=== PATIENT | male | born 1950 | race Caucasian/White ===

== ENCOUNTER → 2024-10-09 09:57 | Outpatient (CLI) | payer MEDICARE, OTHER, SELFPAY ==
--- NOTE | 2024-10-09 10:00 | DI.ECHO.S_ITS ---
[place] +---------+ [facility] : : [address] : : [place] : : [id number] : : Phone: [phone] Echocardiogram Report + + :Name: DAKOTA MCCARTHY Study Date: 10/09/2024 Height: 70 in : [facility] Reading[facility]: Weight: 185 lb : : Gender: Male BSA: 2.0 m2 : :: 1950 Age: 73 yrs BP: 144/79 mmHg: :Reason For Study: MURMUR, CHEST PAIN : :Ordering Physician: JOSIAH, : :CLIFF Performed By: Aman Wagner : :Referring: CLIFF RAHMAN : + + Interpretation Summary The left ventricle is normal in size. Left ventricular systolic function appears normal without focal wall motion abnormalities. The ejection fraction is estimated to be 55-60%. The right ventricle is mild to moderately dilated. The right ventricular systolic function is normal. The left atrium is mildly dilated. There is no significant valvular heart disease. The ascending aorta is mildly enlarged. Procedure: A two-dimensional transthoracic echocardiogram with color flow and Doppler was performed. The study quality was technically good. There is no prior echocardiogram noted for this patient. The patient was in normal sinus rhythm during the exam. Left Ventricle: The left ventricle is normal in size. Left ventricular wall thickness is mildly increased. There is no ventricular septal defect visualized. Left ventricular systolic function appears normal without focal wall motion abnormalities. The ejection fraction is estimated to be 55-60%. Diastolic function could not be accurately assessed due to contradictory data. Right Ventricle: The right ventricle is mild to moderately dilated. The right ventricular systolic function is normal. Atria: The left atrium is mildly dilated. Right atrial size is normal. There is no Doppler evidence for an interatrial shunt. Mitral Valve: The mitral valve leaflets appear mildly thickened, but open well. There is trace mitral regurgitation. Aortic Valve: The aortic valve is trileaflet. The aortic valve is moderately calcified. There is trace aortic regurgitation. Tricuspid Valve: The tricuspid valve leaflets are thin and pliable. No tricuspid regurgitation. Pulmonic Valve: The pulmonic valve leaflets are thin and pliable; valve motion is normal. There is mild pulmonic regurgitation. There is no significant valvular heart disease. Great Vessels: The aortic root is normal size. The ascending aorta is mildly enlarged. The pulmonary artery is normal size. The IVC is of normal diameter and collapses greater than 50% with a sniff. This suggests a low right atrial pressure of 3 mm Hg. Pericardium/ Pleura There is no pericardial effusion. There is no pleural effusion. MMode/2D Measurements & Calculations LVIDd: 4.9 cm LVOT diam: 2.1 cm LVIDs: 3.6 cm Ao root diam: 3.5 cm FS: 26.0 % asc Aorta Diam: 3.6 cm EPSS: 0.62 cm IVSd: 1.2 cm LVPWd: 1.2 cm LV castillo. diameter/BSA (cm/m^2): 2.4 LV sys. diameter/BSA (cm/m^2): 1.8 LA A2 area: 19.2 cm2 RA long axis: 6.1 cm LA A4 area: 21.5 cm2 RA area: 16.8 cm2 LA length (vol): 5.7 cm RA vol: 39.3 ml LA vol: 61.1 ml RA : 19.5 ml/m2 LA vol index: 30.3 ml/m2 IVC diam: 1.7 cm RVD1 (basal): 4.3 cm RVD2 (mid): 3.0 cm TAPSE: 2.5 cm Doppler Measurements & Calculations Ao V2 max: 142.1 cm/sec LVOT Max José Miguel: 63.8 cm/sec Ao V2 mean: 103.6 cm/sec LV V1 max P.6 mmHg Ao max P.1 mmHg LV V1 VTI: 14.2 cm Ao mean P.7 mmHg LETTY(I,D): 1.5 cm2 Ao V2 VTI: 32.7 cm LETTY(V,D): 1.6 cm2 sev ratio: 0.43 LETTY indexed to BSA (cm^2/m^2): 0.77 MV E max josé miguel: 80.2 cm/sec PA V2 max: 101.8 cm/sec MV A max josé miguel: 66.3 cm/sec PA V2 mean: 69.1 cm/sec MV E/A: 1.2 PA mean P.1 mmHg Med Peak E' José Miguel: 4.8 cm/sec PA pr(Accel): 32.8 mmHg E/E' med: 16.8 Lat Peak E' José Miguel: 5.5 cm/sec E/E' lat: 14.5 E/e' average: 15.6 MV dec time: 0.13 sec SV(LVOT): 50.7 ml Reading Physician:06:20 PM
--- NOTE | 2024-10-09 10:01 | DI.RAD.S_ITS ---
PROCEDURE: FL BARIUM SWALLOW INDICATIONS: CARDIAC MURMUR,PRECORDIAL PAIN,DYSPHAGIA COMPARISON: None. FINDINGS: Function: There is at least moderate esophageal dysmotility with delayed passage of contrast into the esophagus and tertiary contractions.. No elicited gastroesophageal reflux. The calibrated barium tablet paused at the GE junction before passage into the stomach. Morphology: Air-contrast images demonstrate normal mucosal morphology. Single contrast views show no esophageal strictures, extrinsic mass effects, or diverticula. Limited images of the stomach demonstrate normal appearance. IMPRESSION: 1. At least moderate esophageal dysmotility. 2. Calibrated barium tablet paused at the GE junction before passage into the stomach. 3. No esophageal strictures or masses are identified. No definite hiatal hernia is seen. Dictated by: Venkatesh Gloria M.D. on 10/09/2024 at 11:18 Approved by: Venkatesh Gloria M.D. on 10/09/2024 at 11:21
== END ==
LOC: ECHO 09:59
PROVIDERS: PCP Family Medicine; Referring Provider Student in an Organized Health Care Education/Training Program; Visit Provider Student in an Organized Health Care Education/Training Program
DX: I35.8 Other nonrheumatic aortic valve disorders (principal); I37.1 Nonrheumatic pulmonary valve insufficiency; I77.810 Thoracic aortic ectasia; R01.1 Cardiac murmur, unspecified; R07.2 Precordial pain; R13.14 Dysphagia, pharyngoesophageal phase
CPT/HCPCS: 74220; 93306